=== PATIENT | male | born 1975 | race Caucasian/White ===

== ENCOUNTER 2024-04-29 11:25 | Outpatient (CLI) | payer MEDICARE, MEDICAID, SELFPAY ==
[2024-04-29 11:50] LABS: Basophils Absolute Auto 0.1 K/mm3 (0.0-0.1); Basophils Percent Auto 0.6 % (0.2-1.2); Eosinophils Absolute Auto 0.2 K/mm3 (0-0.3); Eosinophils Percent Auto 2.1 % (0-4.4); Hematocrit 40.5 % (42.0-52.0); Hemoglobin 13.7 g/dL (14.0-18.0); Immature Granulocyte Absolute 0.02 K/mm3 (0.00-0.031); Immature Granulocyte Percent A 0.2 % (0-0.5); Immature Platelet Fraction Pct 2.5 % (0.9-11.2); Lymphocytes Absolute Auto 2.36 K/mm3 (0.9-3.2); Lymphocytes Percent Auto 26.7 % (18.3-44.2); Mean Corpuscular HGB Conc 33.8 g/dl (32-36); Mean Corpuscular Volume 94.6 fl (80-100); Mean Platelet Volume 9.3 fl (7.4-10.4); Monocytes Absolute Auto 0.4 K/mm3 (0.1-0.6); Monocytes Percent Auto 4.9 % (2.6-8.5); Neutrophils Absolute Auto 5.8 K/mm3 (1.3-6.7); Neutrophils Percent Auto 65.5 % (45.5-73.1); Platelet Count Result 146 k/mm3 (150-375); Red Blood Count 4.28 M/mm3 (4.6-6.20); Red Cell Distribution Width 14.4 % (11.5-14.5); White Blood Count 8.8 K/mm3 (4.5-10.0)
[2024-04-29 13:38] LABS: Alanine Aminotransferase 13 U/L (6-50); Albumin Level 4.1 g/dL (3.5-5.1); Alkaline Phosphatase 85 U/L (38-126); Anion Gap 6 mmol/L (4-12); Aspartate Amino Transferase 22 U/L (17-59); Bilirubin,Total 0.3 mg/dL (0.2-1.3); Blood Urea Nitrogen 7 mg/dL (9-20); Calcium 8.4 mg/dL (8.4-10.2); Carbon Dioxide 32 mmol/L (22-30); Chloride 97 mmol/L (98-107); Estimated Glomerular Filt Rate > 60; Glucose 82 mg/dL (65-110); Sodium 135 mmol/L (137-145)
[2024-04-29 14:38] LABS: Folic Acid 2.8 ng/mL (2.76->20)
[2024-04-29 15:43] LABS: Fibrinogen 336 mg/dl (215-510); Partial Thromboplastin Time 28.9 Seconds (22.3-36.8)
[2024-04-29 16:28] LABS: Iron 40 ug/dL (49-181)
[2024-04-29 16:33] LABS: Percent Iron Saturation 12 % (20-50)
[2024-05-05 14:48] LABS: Methylmalonic Acid 227 nmol/L (55-335)
[2024-05-07 14:17] LABS: Soluble Transferrin Receptor 1.81 mg/L (0.76-1.76)
[2024-05-07 21:14] LABS: Platelet Antibody, Direct NEGATIVE (NEGATIVE)
== END 2024-04-29 11:26 | disposition home or self-care (01) ==
LOC: ANHLAB 11:29
PROVIDERS: Visit Provider Internal Medicine Hematology & Oncology
DX: D69.59 Other secondary thrombocytopenia (principal)
CPT/HCPCS: 36415; 80053; 82607; 82728; 82746; 83540; 83550; 83921; 84238; 85025; 85055; 85384; 85610; 85730; 86023

== ENCOUNTER 2024-05-13 08:46 | Outpatient (CLI) | payer MEDICARE, MEDICAID, SELFPAY ==
--- NOTE | ~2024-05-13 | US_ITS ---
EXAMINATION: US abdomen complete DATE: 05/13/2024 10:02 INDICATION: Other secondary thrombocytopenia. TECHNIQUE: Multiple grayscale and Doppler ultrasound images of the abdomen were obtained. COMPARISON: None FINDINGS: The visualized portions of the head, body, and tail of the pancreas are normal. The liver i s normal without focal lesion. There is normal flow in main portal vein. The gallbladder is normal in size and contains sludge. No gallbladder wall thickening or sonographic Nichols sign. The common duct is normal and measures 5 mm. The kidneys are normal in size. There is mild splenomegaly measuring 14 .2 cm. Inferior vena cava is normal. Abdominal aorta is normal in caliber. IMPRESSION: 1. Mild splenomegaly. Reviewed, dictated and finalized at location [facility]. IMPRESSION: 1. Mild splenomegaly.
== END 2024-05-13 08:47 | disposition home or self-care (01) ==
PROVIDERS: Visit Provider Internal Medicine Hematology & Oncology
DX: D69.59 Other secondary thrombocytopenia (principal); R16.1 Splenomegaly, not elsewhere classified
CPT/HCPCS: 76700

== ENCOUNTER 2024-05-27 09:06 | Outpatient (CLI) | payer MEDICARE, MEDICAID, SELFPAY ==
--- NOTE | ~2024-05-27 | CT_ITS ---
Clinical Indication: Shortness of breath CT Scan of the Chest with Contrast: Technique: Contiguous sections were acquired throughout the chest after intravenous administration of 75 cc of Omnipaque 350. Dose reduction technique was used on this scan by utilizing automated exposu re control and iterative reconstruction technique. The dose-length product (DLP) was 228.55 mGy-cm. Findings: There are mildly enlarged lymph nodes along the right paratracheal stripe, AP window, and the left pr ecarinal region. Additional enlarged subcarinal lymph nodes are present.. There is no filling defect in the pulmonary arterial tree to suggest pulmonary embolus. There is no evidence of aortic dissectio n or aneurysm. There is no evidence of pleural or pericardial effusion. There are mild peripheral chronic interstitial changes throughout the lungs. There is probable mild e xtensive mosaic attenuation pattern of the lungs. No suspicious pulmonary nodule seen. Images through the upper abdomen reveal no abnormalities. Impression: Mild diffuse chronic interstitial disease peripherally, with diffuse mosaic attenuation pattern of th e lungs. Mild mediastinal lymphadenopathy, as above, nonspecific. This is favored to be reactive versus possib ility of lymphoma or metastatic disease. Reviewed, dictated and finalized at [facility]. Impression: Mild diffuse chronic interstitial disease peripherally, with diffuse mosaic att enuation pattern of the lungs. Mild mediastinal lymphadenopathy, as above, nonspecific. This is favored to be reactive versus possibility of lymphoma or metastatic disease.
== END 2024-05-27 09:07 | disposition home or self-care (01) ==
LOC: ANHIMG 09:12
PROVIDERS: Visit Provider Internal Medicine Hematology & Oncology
DX: R06.02 Shortness of breath (principal)
CPT/HCPCS: 71260; Q9967